=== PATIENT | female | born 2000 | race Caucasian/White ===

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

== ENCOUNTER 2022-01-28 18:10 | Emergency (ER) | payer OTHER, SELFPAY ==
[2022-01-28 19:39] VITALS: BP 113/76; PULSE 99; RESP 18; TEMP 37.2; O2SAT 96; BMI 30.7
[2022-01-28 20:18] LABS: Basophils # 0.1 K/mm3 (0-0.2); Basophils % 0.5 % (0.1-2.0); Eosinophils # 0.1 K/mm3 (0.0-0.4); Eosinophils % 1.3 % (0.1-12.0); Hematocrit 41.1 % (37.0-47.0); Hemoglobin 13.4 g/dL (12.2-16.2); Lymphocytes # 1.7 K/mm3 (0.7-4.5); Lymphocytes % 14.7 % (10-50); Mean Corpuscular HGB Conc 32.5 g/dL (31.8-35.4); Mean Corpuscular Hemoglobin 29.1 pg (27.0-31.2); Mean Corpuscular Volume 89.4 fl (81-99); Mean Platelet Volume 7.7 fl (7.4-10.4); Monocytes # 0.5 K/mm3 (0.1-1.0); Monocytes % 4.1 % (1.7-9.3); Neutrophils # 8.9 K/mm3 (1.8-7.8); Neutrophils % 79.4 % (37.0-80.0); Platelet Count 319 K/mm3 (142-424); Red Cell Distribution Width 13.1 % (11.5-17.5); White Blood Count 11.2 K/mm3 (4.5-13.0)
[2022-01-28 20:23] LABS: Urine Pregnancy, HCG Qual. Positive (Negative)
[2022-01-28 20:31] LABS: Chloride 104 mmol/L (98-107); Sodium 139 mmol/L (136-145)
[2022-01-28 20:33] LABS: Blood Urea Nitrogen 13 mg/dl (7-17); Creatinine Clearance Estimated 198 mL/min (50-200); Estimated Glomerular Filt Rate 127 ml/min (>60); GFR (African American) 154 ML/MIN (>60)
[2022-01-28 20:34] LABS: Alanine Aminotransferase 22 U/L (12-78); Albumin Level 4.4 g/dl (3.5-5.0); Albumin/Globulin Ratio 1.6 (1.1-1.8); Alkaline Phosphatase 89 U/L (38-126); Aspartate Amino Transferase 26 U/L (14-36); Calcium 9.5 mg/dl (8.4-10.2); Carbon Dioxide 27 mmol/L (22.0-30.0); Globulin 2.8 g/dL (1.3-3.2); Glucose 95 mg/dl (74-100); Total Protein,Serum 7.2 g/dl (6.3-8.2)
[2022-01-28 20:41] LABS: Bilirubin,Total < 0.1 mg/dl (0.2-1.3)
[2022-01-28 21:37] LABS: HCG,Quantitative 123 mIU/ml (0-5.42)
--- NOTE | 2022-01-28 21:41 | HMH.EDUROGF ---
Discharge Plan Disposition Patient Disposition: Home, Self-Care Chief Complaint: Vaginal Bleeding Referrals Follow up/Referrals: Provider,Referral, MD [Primary Care Provider] - See instructions Clinical Impressions Clinical Impression: , Vaginal bleeding affecting early Instructions Patient Instructions: DI for Vaginal Bleeding Discharge ED Provider: Pete Pinedo Female Urogenital HPI General Chief complaint: Vaginal Bleeding Stated complaint: preg bleeding Time Seen by Provider: 01/28/22 20:30 Mode of Arrival: Ambulatory Source of Information: Patient and Medical Record Limitations: No Limitations Description of Symptoms (Recalled from ER Triage Doc. by RN): Patient presents to ER Pov. States her last period was 5 weeks ago. Took an at home test 4 days ago and it was positive. States she was at [employer] a couple of hours ago and went to the restroom and noticed blood in the toilet. States she is no longer bleeding. Denies any abdominal cramping. History of Present Illness HPI Narrative: pt with positive home preg test and vag bleeding tonight - Complaint: vaginal bleeding Onset (ago): hour(s) Severity: mild Duration: intermittent : Yes Related Data Allergies Allergy/AdvReac Type Severity Reaction Status Date / Time Penicillins [PENICILLINS] Allergy Unknown I-HIVES Unverified 02/09/17 15:12 [facility] Disclaimer: The information contained in this section may have been updated after the patient was seen, as this information can be updated by other users. Social History Smoking Status: Never smoker alcohol intake: never current occupational status: employed Travel in the last 8 weeks: None ROS Obtained: Yes All systems reviewed & no additional complaints except as documented Physical Exam General General appearance: alert Head Head exam: normocephalic Eye Eye exam: Present PERRL and EOMI ENT ENT exam: Present mucous membranes moist Neck Neck exam: Present trachea midline Respiratory Respiratory exam: Absent respiratory distress Cardiovascular Cardiovascular exam: Present regular rate Abdominal Exam Abdominal exam: Present soft Neurological Exam Neurological exam: Present alert, oriented X3 and CN II-XII intact Psychiatric Psychiatric exam: Present normal affect Skin Skin exam: Absent rash Medical Decision Making Medical Records Medical records reviewed: Yes I reviewed the patient's medical records. Venkat Inquiry Pt receiving controlled substance: No Vital Signs: 01/28/22 19:39 Temperature 98.9 F Temperature Source Oral Pulse Rate [Apical] 99 H Respiratory Rate 18 Blood Pressure [Right Arm] 113/76 Blood Pressure Mean [Right Arm] 88 Blood Pressure Source [Right Arm] Automatic Cuff Blood Pressure Position [Right Arm] Sitting 02 Sat by Pulse Oximetry 96 Oxygen Delivery Method Room Air Lab Data Lab results reviewed: Yes I reviewed the patient's lab results. Lab Results 01/28/22 19:00: Urine HCG, Qual Positive 01/28/22 20:05: WBC 11.2, RBC 4.60, Hgb 13.4, Hct 41.1, MCV 89.4, MCH 29.1, MCHC 32.5, RDW 13.1, Plt Count 319, MPV 7.7, Neut % (Auto) 79.4, Lymph % (Auto) 14.7, Holmes % (Auto) 4.1, Eos % (Auto) 1.3, Baso % (Auto) 0.5, Neut # (Auto) 8.9 H, Lymph # (Auto) 1.7, Holmes # (Auto) 0.5, Eos # (Auto) 0.1, Baso # (Auto) 0.1 01/28/22 20:05: Urine HCG, Qual Cancelled 01/28/22 20:05: Sodium 139, Potassium 4.0, Chloride 104, Carbon Dioxide 27, Anion Gap 12.0, BUN 13, Creatinine 0.60, Estimated Creat Clear 198, Estimated GFR 127, Est GFR ( Amer) 154, Glucose 95, Calcium 9.5, Total Bilirubin < 0.1 L, AST 26, ALT 22, Alkaline Phosphatase 89, Total Protein 7.2, Albumin 4.4, Globulin 2.8, Albumin/Globulin Ratio 1.6 01/28/22 20:05: HCG, Quant 123 H 01/28/22 20:36: Blood Type O Positive Result diagrams: 01/28/22 20:05 01/28/22 20:05 Orders (Tests/Meds): ORDERS Category Date Time Status ABO/RH Type
[2022-01-28 22:01] VITALS: BP 111/75; PULSE 99; RESP 18; TEMP 36.6; O2SAT 97
== END 2022-01-28 22:24 | disposition home or self-care (01) ==
PROVIDERS: Emergency Provider Emergency Medicine
DX: O20.9 Hemorrhage in early pregnancy, unspecified (principal); Z3A.01 Less than 8 weeks gestation of pregnancy
CPT/HCPCS: 36415; 80053; 81025; 84702; 85025; 86900; 86901; 99282